=== PATIENT | male | born 1980 | race Caucasian/White ===

== ENCOUNTER 2018-11-07 12:38 | Emergency (ER) | payer SELFPAY ==
[~2018-11-07] VITALS: Ht 182.9 cm; Wt 79.0 kg
[2018-11-07] MEDS ORDERED: TETANUS, DIPHTHERIA, PERTUSSIS VAC/PF 0.5ML (>7YR OLD) IM ONE (18:15)
[2018-11-07] MEDS ORDERED: IBUPROFEN 800MG TABLET PO ONE (18:15)
[2018-11-07 18:38] LABS: BASOPHILS % 0.2 % (0.0-2.0); EOSINOPHILS % 3.1 % (0.0-5.0); HEMATOCRIT. 40.8 % (42.0-52.0); LYMPHOCYTES % 14.4 % (20.0-50.0); MEAN CORPUSCULAR HEMOGLOBIN 30.5 pg (28.0-32.0); MEAN CORPUSCULAR VOLUME 88.7 fL (80.0-94.0); MEAN PLATELET VOLUME 8.7 fl (7.4-10.4); MONOCYTES % 5.6 % (2.0-8.0); NEUTROPHILS % 76.7 % (40.0-76.0); PLATELET 221 x1000/uL (130-400); RED CELL DISTRIBUTION WIDTH 12.5 % (11.6-14.6)
[2018-11-07 18:38] LABS: CLARITY URINE CLEAR (CLEAR); COLOR URINE YELLOW (YELLOW); KETONES URINE NEGATIVE (NEGATIVE); LEUKOCYTE ESTERASE URINE NEGATIVE (NEGATIVE); NITRITE URINE NEGATIVE (NEGATIVE); OCCULT BLOOD URINE NEGATIVE (NEGATIVE); PH URINE 6.5 (4.5-8.0); PROTEIN URINE NEGATIVE (NEGATIVE); SPECIFIC GRAVITY URINE 1.012 (1.005-1.030)
[2018-11-07] MEDS ORDERED: BACITRACIN 15GM TUBE TOP ONE (22:00)
[2018-11-08] MEDS ORDERED: IBUPROFEN 800MG TABLET PO ONE (08:45)
[2018-11-08 12:00] VITALS: BP 109/62
== END 2018-11-08 13:00 | disposition home or self-care (01) ==
LOC: ER 12:38
DX: L55.0 Sunburn of first degree (principal); N50.819 Testicular pain, unspecified; Z59.0 Homelessness
CPT/HCPCS: 36415; 76870; 81003; 85025; 90471; 90715; 93976; 99284; Z7610